=== PATIENT | female | born 1955 | race Caucasian/White ===

== ENCOUNTER → 2024-08-02 | Outpatient (CLI) | payer OTHER ==
[2024-08-02 13:11] LABS: BLOOD UREA NITROGEN 24 MG/DL (9-23); CALCIUM LEVEL 9.9 MG/DL (8.3-10.6); CARBON DIOXIDE LEVEL 30 MMOL/L (20-31); CHLORIDE LEVEL 106 MMOL/L (98-107); CREATININE FOR GFR 0.83 MG/DL (0.55-1.30); GLOMERULAR FILTRATION RATE > 60.0 (>45); GLUCOSE, FASTING 92 MG/DL (74-106); SODIUM LEVEL 142 MMOL/L (136-145)
== END ==
LOC: M EKG 11:37
PROVIDERS: ATTEND Ophthalmology
DX: H33.011 Retinal detachment with single break, right eye (principal)